=== PATIENT | female | born 1995 | race Two or more races ===

== ENCOUNTER 2018-09-01 20:22 | Emergency (ER) | payer BC, OTHER ==
[~2018-09-01] VITALS: Ht 167.6 cm; Wt 127.0 kg
[~2018-09-01 20:22] MED LIST: IBUP-1007 PO; RANI300T3 PO
--- NOTE | 2018-09-01 21:29 | PHYS DOC ---
Past Medical History Past Medical History: No Pertinent History Past Surgical History: No Surgical History Alcohol Use: Occasionally Drug Use: None Adult General Chief Complaint Chief Complaint: ABDOMINAL PAIN HPI HPI Patient is an overweight 23 yo female who presents with 2 weeks of gradually worsening burning epigastric abdominal pain. She describes the pain as burning in her epigastrium which is improved with eating bland foods and worse 30 minutes to an hour after eating. She reports she has not tried any medication to help with symptoms. She reports she has vomited once since the symptoms began but denies presence of blood in vomit. She denies diarrhea, constipation, or urinary symptoms. Pt also denies chest pain, shortness of breath, or back pain. She reports that 1-2 years ago she was in [facility] ED w/ similar symptoms ( however at the time they were worse) and was diagnosed with gastritis. Patient denies eating spicy or acidic foods or copious NSAID use. She denies any additional medical hx. Patient recently began bc pills 1 month ago but denies any other new medications. Her primary care provider is Deisy Dalal. She denies medication allergies. Admits father has had ulcers. Patient has never had EGD. FDLMP 08/21/18. Review of Systems Review of Systems Constitutional: Denies fever or chills [] Respiratory: Denies cough or shortness of breath [] Cardiovascular: Denies chest pain. Denies palpitations GI: Admits burning abdominal pain. Denies diarrhea. Admits one episode of nonbloody emesis. Admits intermittent nausea. : Denies dysuria or hematuria [] Musculoskeletal: Denies back pain or joint pain [] Integument: Denies rash or skin lesions [] Neurologic: Denies headache, focal weakness or sensory changes [] All other systems were reviewed and found to be within normal limits, except as documented in this note. Current Medications Current Medications Current Medications Medications (Trade) Dose Ordered Sig/Nima Start Time Stop Time Status Last Admin Dose Admin Multi-Ingredient Mouthwash/Gargle (Gi Cocktail) 20 ml 1X ONCE 09/01/18 21:30 09/01/18 21:31 DC 09/01/18 21:35 20 ML Allergies Allergies Allergies Coded Allergies Type Severity Reaction Last Updated Verified No Known Drug Allergies 03/24/16 No Physical Exam Physical Exam Constitutional: Well developed, well nourished, no acute distress, non-toxic appearance. [] HENT: Normocephalic, atraumatic, Cardiovascular:Heart rate regular rhythm, no murmur [] Lungs & Thorax: Bilateral breath sounds clear to auscultation [] Abdomen: Bowel sounds normal, soft, mild epigastric tenderness, no masses Neurologic: Alert and oriented X 3, normal motor function, normal sensory function, no focal deficits noted. [] Psychologic: Affect normal, judgement normal, mood normal. [] Current Patient Data Vital Signs Vital Signs Date Time Temp Pulse Resp B/P (MAP) Pulse Ox O2 Delivery O2 Flow Rate FiO2 09/01/18 21:40 77 17 131/81 (98) 98 Room Air 09/01/18 20:30 98.2 98.2 Lab Values Laboratory Tests Test 09/01/18 20:42 09/01/18 21:24 POC Urine HCG, Qualitative Hcg negative (Negative) White Blood Count 8.2 x10^3/uL (4.0-11.0) Red Blood Count 4.77 x10^6/uL (3.50-5.40) Hemoglobin 13.2 g/dL (12.0-15.5) Hematocrit 39.5 % (36.0-47.0) Mean Corpuscular Volume 83 fL (79-100) Mean Corpuscular Hemoglobin 28 pg (25-35) Mean Corpuscular Hemoglobin Concent 33 g/dL (31-37) Red Cell Distribution Width 14.5 % (11.5-14.5) Platelet Count 274 x10^3/uL (140-400) Neutrophils (%) (Auto) 52 % (31-73) Lymphocytes (%) (Auto) 38 % (24-48) Monocytes (%) (Auto) 8 % (0-9) Eosinophils (%) (Auto) 2 % (0-3) Basophils (%) (Auto) 1 % (0-3) Neutrophils # (Auto) 4.2 x10^3uL (1.8-7.7) Lymphocytes # (Auto) 3.1 x10^3/uL (1.0-4.8) Monocytes # (Auto) 0.6 x10^3/uL (0.0-1.1) Eosinophils # (Auto) 0.1 x10^3/uL (0.0-0.7) Basophils # (Auto) 0.1 x10^3/uL (0.0-0.2) Sodium Level 143 mmol/L (136-145) Potassium Level 3.8 mmol/L (3.5-5.1) Chloride Level 104 mmol/L (98-107) Carbon Dioxide Level 30 mmol/L (21-32) Anion Gap 9 (6-14) Blood Urea Nitrogen 11 mg/dL (7-20) Creatinine 0.7 mg/dL (0.6-1.0) Estimated GFR (Cockcroft-Gault) 102.0 BUN/Creatinine Ratio 16 (6-20) Glucose Level 110 mg/dL (70-99) H Calcium Level 8.9 mg/dL (8.5-10.1) Total Bilirubin 0.3 mg/dL (0.2-1.0) Aspartate Amino Transferase (AST) 19 U/L (15-37) Alanine Aminotransferase (ALT) 55 U/L (14-59) Alkaline Phosphatase 70 U/L (46-116) Total Protein 7.6 g/dL (6.4-8.2) Albumin 3.4 g/dL (3.4-5.0) Albumin/Globulin Ratio 0.8 (1.0-1.7) L Lipase 138 U/L (73-393) Laboratory Tests 09/01/18 21:24 Laboratory Tests 09/01/18 21:24 EKG EKG [] Radiology/Procedures Radiology/Procedures [] Course & Med Decision Making Course & Med Decision Making Patient is a healthy 23 yo female who presents with complaint of 2 weeks of burnign epigastric pain. She reports she has been diagnosed with gastritis 1-2 years prior, however describes the previous episode as having worse pain that currently. On physical exam patient's vitals are unremarkable and she is moderately tender to palpation in RUQ and LUQ with perhaps slightly more tenderness in epigastrium. Remainder of physical exam unremarkable. Lab work unremarkable. Patient had RUQ US in 2016 that did not reveal gallstones. As patient did not have elevated AST/ALT/alk phos here today and pain was relieved with GI cocktail felt it was safe to not repeat RUQ US. Patient's symptoms treated in ED with GI cocktail with satisfactory symptomatic resolution. Patient diagnosed with gastritis, discharged home with omeprazole, and instructed to follow up with PCP. Also, d/t symptoms improving with food and worsening 30 minutes or so after eating, gastric and duodenal ulcers are in the differential and that patient should follow up with GI for further evaluation of symptoms. Discussed plan with patient who voiced understanding and agreement with plan. [] Dragon Disclaimer Dragon Disclaimer This electronic medical record was generated, in whole or in part, using a voice recognition dictation system. Departure Departure Impression: Primary Impression: Abdominal pain Disposition: HOME, SELF-CARE Condition: STABLE Referrals: DEISY ANNE DO (PCP) Scripts Omeprazole (OMEPRAZOLE) 40 Mg Capsule.dr 1 CAP PO DAILY, #30 CAP 1 Refill Prov: JOSE TOM MD 09/01/18 JOSE TOM MD Sep 01, 2018 21:29
[2018-09-01] MEDS ORDERED: LIDO:MAALOX 1:1 20 ML SINGLE DOSE. SWSW ONE (21:30)
[2018-09-01 21:32] LABS: BASO # 0.1 x10^3/uL (0.0-0.2); BASO % 1 % (0-3); EOS # 0.1 x10^3/uL (0.0-0.7); EOS % 2 % (0-3); HEMATOCRIT 39.5 % (36.0-47.0); HEMOGLOBIN 13.2 g/dL (12.0-15.5); LYMPH # 3.1 x10^3/uL (1.0-4.8); LYMPH % 38 % (24-48); MEAN CORPUSCULAR HEMOGLOBIN 28 pg (25-35); MEAN CORPUSCULAR HGB CONC 33 g/dL (31-37); MEAN CORPUSCULAR VOLUME 83 fL (79-100); MONO # 0.6 x10^3/uL (0.0-1.1); MONO % 8 % (0-9); NEUT # 4.2 x10^3uL (1.8-7.7); NEUT % 52 % (31-73); PLATELET COUNT 274 x10^3/uL (140-400); RED BLOOD COUNT 4.77 x10^6/uL (3.50-5.40); RED CELL DISTRIBUTION WIDTH 14.5 % (11.5-14.5); WHITE BLOOD COUNT 8.2 x10^3/uL (4.0-11.0)
[2018-09-01 21:40] VITALS: BP 131/81
[2018-09-01 21:45] LABS: CALCIUM 8.9 mg/dL (8.5-10.1); CREATININE 0.7 mg/dL (0.6-1.0); POTASSIUM 3.8 mmol/L (3.5-5.1)
[2018-09-01 21:51] LABS: ALBUMIN 3.4 g/dL (3.4-5.0); ALBUMIN/GLOBULIN RATIO 0.8 (1.0-1.7); TOTAL BILIRUBIN 0.3 mg/dL (0.2-1.0); TOTAL PROTEIN 7.6 g/dL (6.4-8.2)
[2018-09-01] MEDS ORDERED: OMEP40CA5 PO (21:59)
== END 2018-09-01 22:10 | disposition home or self-care (01) ==
LOC: ER 20:22
DX: R10.13 Epigastric pain (principal); R11.2 Nausea with vomiting, unspecified
CPT/HCPCS: 36415; 80053; 81025; 83690; 85025; 99283